=== PATIENT | male | born 1975 | race Asian ===

== ENCOUNTER 2016-07-30 09:35 | Emergency (ER) | payer MEDICAID, OTHER ==
[~2016-07-30] VITALS: Ht 175.3 cm; Wt 76.1 kg
[2016-07-30] MEDS ORDERED: KETOROLAC 30 MG/1 ML IM ONE (10:00)
[2016-07-30] MEDS ORDERED: DIAZEPAM 5 MG TABLET PO ONE (10:00)
[2016-07-30] MEDS ORDERED: DIAZEPAM 5 MG TABLET ONE (10:02)
[2016-07-30] MEDS ORDERED: KETOROLAC 30 MG/1 ML ONE (10:03)
[2016-07-30 10:15] VITALS: BP 124/49
== END 2016-07-30 11:17 | disposition home or self-care (01) ==
LOC: ED 10:00
DX: M47.892 Other spondylosis, cervical region (principal); R20.2 Paresthesia of skin; F17.210 Nicotine dependence, cigarettes, uncomplicated; M54.30 Sciatica, unspecified side
CPT/HCPCS: 72125; 96372; 99284; J1885

== ENCOUNTER 2016-08-03 03:25 | Inpatient (IN) | payer MEDICAID, OTHER ==
[~2016-08-03] VITALS: Ht 175.3 cm; Wt 76.8 kg
[2016-08-03] MEDS ORDERED: SODIUM CHLORIDE 0.9% 1,000ML IVBOLUS ONE ×2 (04:00)
[2016-08-03] MEDS ORDERED: ONDANSETRON 2MG/ML, 2ML IVPush ONE (04:00)
[2016-08-03] MEDS ORDERED: MORPHINE SULFATE 4 MG/ML, 1ML IVPush PRN ×2 (04:00→07:30)
[2016-08-03] MEDS ORDERED: MORPHINE SULFATE 4 MG/ML, 1ML ONE (04:06)
[2016-08-03] MEDS ORDERED: ONDANSETRON 2MG/ML, 2ML ONE (04:06)
[2016-08-03] MEDS ORDERED: ACETAMINOPHEN 500 MG TABLET ONE (04:59)
[2016-08-03 05:17] LABS: BLOOD UREA NITROGEN 18 mg/dL (7-18)
[2016-08-03 05:23] LABS: ASPARTATE AMINO TRANSFERASE 14 U/L (15-37)
[2016-08-03 05:24] LABS: IS PT STATUS REG ER OR PRE ER? YES
[2016-08-03] MEDS ORDERED: ACETAMINOPHEN 325 MG TABLET PO ONE (05:30)
[2016-08-03] MEDS ORDERED: LORazepam 2 MG/ML, 1ML ONE (05:35)
[2016-08-03] MEDS ORDERED: CEFTRIAXONE PMX 1GM/50ML 50 ML ONE (05:37)
[2016-08-03] MEDS ORDERED: ZIPRASIDONE 20 MG INJ IM ONE ×2 (05:44→06:00)
[2016-08-03] MEDS ORDERED: CEFTRIAXONE PMX 1GM/50ML 50 ML IV ONE (06:00)
[2016-08-03] MEDS ORDERED: LORazepam 2 MG/ML, 1ML IVPush ONE (06:00)
[2016-08-03] MEDS ORDERED: SODIUM CHLORIDE 0.9% 1,000 ML IV ONE (07:09)
[2016-08-03] MEDS ORDERED: OMNIPAQUE 350 MG/ML, 100ML BOTTLE ONE (07:24)
[2016-08-03] MEDS ORDERED: ONDANSETRON 2MG/ML, 2ML IVPush PRN ×2 (07:30→10:30)
[2016-08-03 08:41] VITALS: BP 112/75
[2016-08-03] MEDS ORDERED: ACETAMINOPHEN 325 MG TABLET PO PRN (10:30)
[2016-08-03] MEDS ORDERED: morphine SULFATE 10 MG/ML, 1ML IVPush PRN (10:30)
[2016-08-03] MEDS ORDERED: BISACODYL 10 MG SUPP PR PRN (10:30)
[2016-08-03] MEDS ORDERED: POLYETHYLENE GLYCOL 17 GM PACKET PO PRN (10:30)
[2016-08-03] MEDS: ENOXAPARIN 40 MG/0.4 ML SQ SCH (11:00)
[2016-08-03] MEDS: SODIUM CHLORIDE 0.9% 1,000 ML IV SCH ×3 (11:00→22:08)
[2016-08-03 13:45] VITALS: BP 103/67
[2016-08-03] MEDS: AMPICILLIN/SULBACTAM 3 GM in SODIUM CHLORIDE 0.9% 100 ML IV SCH ×2 (13:59→20:43)
[2016-08-03] MEDS ORDERED: GADOBUTROL 7.5 MMOL/7.5 ML PFS ONE (16:41)
[2016-08-03 20:35] VITALS: BP 105/63
[2016-08-03] MEDS: HYDROcodone/APAP 5/325 TABLET PO PRN (20:43)
[2016-08-04 01:57] VITALS: BP 109/62
[2016-08-04] MEDS: AMPICILLIN/SULBACTAM 3 GM in SODIUM CHLORIDE 0.9% 100 ML IV SCH ×4 (01:57→21:33)
[2016-08-04] MEDS: SODIUM CHLORIDE 0.9% 1,000 ML IV SCH ×3 (04:48→21:33)
[2016-08-04 05:54] LABS: ASPARTATE AMINO TRANSFERASE 14 U/L (15-37); BLOOD UREA NITROGEN 8 mg/dL (7-18)
[2016-08-04 07:21] VITALS: BP 101/64
[2016-08-04] MEDS: SENNA/DOCUSATE TABLET PO SCH (08:36)
[2016-08-04] MEDS: ENOXAPARIN 40 MG/0.4 ML SQ SCH (11:29)
[2016-08-04 14:20] VITALS: BP 110/68
[2016-08-04 20:00] VITALS: BP 106/76
[2016-08-04] MEDS: HYDROcodone/APAP 5/325 TABLET PO PRN (22:51)
[2016-08-05 02:00] VITALS: BP 110/65
[2016-08-05] MEDS: AMPICILLIN/SULBACTAM 3 GM in SODIUM CHLORIDE 0.9% 100 ML IV SCH ×4 (03:12→20:33)
[2016-08-05] MEDS: SODIUM CHLORIDE 0.9% 1,000 ML IV SCH ×4 (05:01→20:33)
[2016-08-05 05:40] LABS: BLOOD UREA NITROGEN 7 mg/dL (7-18)
[2016-08-05 06:49] VITALS: BP 113/76
[2016-08-05] MEDS: SENNA/DOCUSATE TABLET PO SCH (08:20)
[2016-08-05] MEDS: ENOXAPARIN 40 MG/0.4 ML SQ SCH (10:53)
[2016-08-05] MEDS: POTASSIUM CHLORIDE 20 MEQ TAB.ER.PRT PO SCH ×3 (11:23→20:34)
[2016-08-05 13:14] VITALS: BP 118/74
[2016-08-05 20:00] VITALS: BP 116/69
[2016-08-05] MEDS ORDERED: TEMAZEPAM 15 MG CAPSULE PO ONE (21:00)
[2016-08-06 02:00] VITALS: BP 112/70
[2016-08-06] MEDS: AMPICILLIN/SULBACTAM 3 GM in SODIUM CHLORIDE 0.9% 100 ML IV SCH ×3 (02:51→12:53)
[2016-08-06] MEDS: SODIUM CHLORIDE 0.9% 1,000 ML IV SCH (06:08)
[2016-08-06 07:53] VITALS: BP 103/54
[2016-08-06] MEDS: POTASSIUM CHLORIDE 20 MEQ TAB.ER.PRT PO SCH (07:59)
[2016-08-06] MEDS: SENNA/DOCUSATE TABLET PO SCH (08:00)
[2016-08-06] MEDS: ENOXAPARIN 40 MG/0.4 ML SQ SCH (10:21)
[2016-08-06 11:21] LABS: BLOOD UREA NITROGEN 9 mg/dL (7-18)
[2016-08-06 12:38] VITALS: BP 107/74
[2016-08-06] MEDS ORDERED: AMOX1TAB12 PO (16:19)
[2016-08-06] MEDS ORDERED: AMOXICILLIN/CLAV 875-125MG TABLET PO SCH (21:00)
== END 2016-08-06 17:30 | disposition home or self-care (01) | DRG 872 ==
LOC: ED 05:26 → EDIP 07:09 → 4WST 08:16
PROVIDERS: ADMIT Internal Medicine; ATTEND Internal Medicine
DX: A41.9 Sepsis, unspecified organism (principal); N39.0 Urinary tract infection, site not specified; K04.7 Periapical abscess without sinus; M50.10 Cervical disc disorder with radiculopathy, unspecified cervical region; E87.6 Hypokalemia; B96.20 Unspecified Escherichia coli [E. coli] as the cause of diseases classified elsewhere; M47.892 Other spondylosis, cervical region
CPT/HCPCS: 36415; 71010; 71275; 72156; 80048; 80053; 81001; 83605; 83735; 84145; 84484; 85025; 87040; 87077; 87086; 87186; 93005; 96374; A9585; J0295; J0696; J1650; J2405; J3486; Q9967; J2060; J7030

== ENCOUNTER 2017-03-15 22:54 | Emergency (ER) | payer OTHER ==
[~2017-03-15] VITALS: Ht 180.3 cm; Wt 74.0 kg
[~2017-03-15 22:54] MED LIST: AMOX1TAB12 PO
[2017-03-15 22:59] VITALS: BP 129/78
== END 2017-03-16 00:41 | disposition home or self-care (01) ==
LOC: ED 23:59
DX: S43.52XA Sprain of left acromioclavicular joint, initial encounter (principal); M19.012 Primary osteoarthritis, left shoulder; M54.12 Radiculopathy, cervical region; X58.XXXA Exposure to other specified factors, initial encounter; Y93.89 Activity, other specified; Y99.0 Civilian activity done for income or pay; Y92.69 Other specified industrial and construction area as the place of occurrence of the external cause
CPT/HCPCS: 99284

== ENCOUNTER 2018-11-15 21:20 | Emergency (ER) | payer OTHER ==
[~2018-11-15] VITALS: Ht 175.3 cm; Wt 72.7 kg
[2018-11-15 21:22] VITALS: BP 115/75
[2018-11-15] MEDS ORDERED: maalox/diphenh/lido/sucralfate 5 ML PO PRN (22:30)
== END 2018-11-15 22:47 | disposition home or self-care (01) ==
LOC: ED 22:37
DX: K13.79 Other lesions of oral mucosa (principal)
CPT/HCPCS: 99282

== ENCOUNTER 2019-03-11 17:24 | Emergency (ER) | payer SELFPAY ==
[~2019-03-11] VITALS: Ht 175.3 cm; Wt 73.5 kg
[2019-03-11 17:46] VITALS: BP 135/81
--- NOTE | 2019-03-11 18:59 | NUR ---
pt called for room nil x 1 at this time
--- NOTE | 2019-03-11 19:30 | NUR ---
NOT IN LOBBY
--- NOTE | 2019-03-11 19:57 | NUR ---
NOT IN LOBBY X 3
== END 2019-03-11 19:59 | disposition left against medical advice (07) ==
LOC: ED 19:53
DX: R51 Headache (principal); Z53.21 Procedure and treatment not carried out due to patient leaving prior to being seen by health care provider

== ENCOUNTER 2020-01-21 13:44 | Emergency (ER) | payer SELFPAY ==
[~2020-01-21] VITALS: Ht 172.7 cm; Wt 72.3 kg
[2020-01-21 13:47] VITALS: BP 116/77
--- NOTE | 2020-01-21 13:50 | NUR ---
PT HERE FOR COVID TEST. PT TO BE SWABBED FOR COVID AND DC
== END 2020-01-21 14:01 | disposition home or self-care (01) ==
LOC: ED 13:55
DX: Z11.59 Encounter for screening for other viral diseases (principal)
CPT/HCPCS: 36415; 87635; 99283